=== PATIENT | female | born 1950 | race Two or more races ===

== ENCOUNTER 2018-06-21 20:54 | Emergency (ER) | payer OTHER, MEDICARE ==
[2018-06-21] MEDS ORDERED: 0.9 % SODIUM CHLORIDE 1,000 ML BAG IV ONE (21:02)
--- NOTE | 2018-06-21 21:03 | Emergency Department Record ---
History of Present Illness - General Chief Complaint: Abdominal Pain Stated Complaint: ABDOMINAL PAIN Time Seen by Provider: 06/21/18 20:55 Source: Patient, Family Mode of Arrival: Ambulatory Limitations: No limitations - History of Present Illness Initial Comments: 68 yo female presents with right lower abdominal pain for 3 days starting on Tuesday. The pain started gradually. It does come and go a little but has been mostly presents. No nausea, vomiting, diarrhea, rash, dysuria, hematuria, blood in stools. She has had her appendix removed in the past, hysterectomy, exploratory in the past. Normal bowel movements. She has IBS. Dr Lara is her PCP. Her last endoscopy was about 2 years ago. She states no abnormalities at that time. She is on Fentanyl and [place] for pain. MD Complaint: Abdominal pain -: Days(s) (3) Location: RLQ Radiation: RLQ Migration to: RLQ Quality: Aching Consistency: Constant Improves With: Nothing Worsens With: Movement Associated Symptoms: Denies other symptoms - Related Data Home Medications Medication Instructions Recorded Confirmed Last Taken Alprazolam 0.5 mg PO BID PRN 06/21/18 06/21/18 06/21/18 Aspirin [Adult Aspirin] 81 mg PO DAILY 06/21/18 06/21/18 06/21/18 Atorvastatin Calcium 20 mg PO DAILY 06/21/18 06/21/18 06/21/18 Bupropion HCl [Wellbutrin Xl] 300 mg PO QAM 06/21/18 06/21/18 06/21/18 Desvenlafaxine Succinate 50 mg PO DAILY 06/21/18 06/21/18 06/21/18 [Desvenlafaxine Succinate ER] Docusate Sodium [Colace] 100 mg PO DAILY 06/21/18 06/21/18 06/21/18 Fentanyl 50 mcg TD Q72H 06/21/18 06/21/18 06/21/18 Folic Acid 1 mg PO DAILY 06/21/18 06/21/18 06/21/18 Hydrocodone/APAP 5/325Mg [[place] 1 each PO Q6H PRN 06/21/18 06/21/18 06/21/18 5Mg/325Mg] Ondansetron [Zofran Odt] 4 mg SL ASDIR PRN 06/21/18 06/21/18 06/21/18 Pregabalin [Lyrica] 150 mg PO BID 06/21/18 06/21/18 06/21/18 Ranitidine HCl 150 mg PO ASDIR PRN 06/21/18 06/21/18 06/21/18 Zolpidem Tartrate 10 mg PO QHS 06/21/18 06/21/18 06/21/18 Allergies Allergy/AdvReac Type Severity Reaction Status Date / Time pentazocine [From [place]] Allergy RASH Verified 06/21/18 21:16 Sulfa (Sulfonamide Allergy RASH Verified 06/21/18 21:16 Antibiotics) Review of Systems Constitutional: Denies: Chills, Fever, Malaise, Weakness Eyes: Denies: Eye discharge ENT: Denies: Congestion, Throat pain Respiratory: Denies: Cough, Dyspnea Cardiovascular: Denies: Chest pain, Syncope Endocrine: Denies: Fatigue Gastrointestinal: Reports: Abdominal pain Musculoskeletal: Denies: Arthralgia, Joint swelling, Myalgia Skin: Denies: Bruising, Change in color, Rash Neurological: Denies: Headache Psychiatric: Denies: Anxiety Hematological/Lymphatic: Denies: Blood Clots, Easy bleeding, Easy bruising Physical Exam - General General Appearance: Alert, Oriented x3, Cooperative, No acute distress Limitations: No limitations - Head Head exam: Atraumatic, Normal inspection - Eye Eye exam: Normal appearance. negative: Conjunctival injection, Scleral icterus - ENT ENT exam: Normal exam, Mucous membranes moist Ear exam: Normal external inspection Nasal Exam: Normal inspection Mouth exam: Normal external inspection - Neck Neck exam: Normal inspection, Full ROM. negative: Tenderness - Respiratory Respiratory exam: Normal lung sounds bilaterally. negative: Respiratory distress - Cardiovascular Cardiovascular Exam: Regular rate, Normal rhythm, Normal heart sounds - GI/Abdominal GI/Abdominal exam: Normal bowel sounds, Tenderness, Other (Soft abdomen on the examination. Non tender except the RLQ otherwise very soft, benign examination. ). negative: Diminished bowel sounds, Distended, Guarding, Rebound, Rigid - Rectal Rectal exam: Deferred - exam: Deferred - Extremities Extremities exam: Normal inspection, Full ROM, Normal capillary refill. negative: Tenderness - Back Back exam: Reports: Full ROM. Denies: CVA tenderness (R), CVA tenderness (L) - Neurological Neurological exam: Alert, Oriented X3 - Psychiatric Psychiatric exam: Normal affect, Normal mood. negative: Agitated, Anxious - Skin Skin exam: Dry, Intact, Normal color, Warm Course Vital Signs 06/21/18 21:00 Temperature 98.2 F Pulse Rate [ 104 H Pulse Ox Probe] Respiratory 20 Rate Blood Pressure 154/91 [Left Arm] Pulse Ox 96 - Reevaluation(s) Reevaluation #1: 06/21/18 21:42 The labs were reviewed No acute changes on the CBC The UA is negative 06/21/18 21:50 No acute changes on the Lipase No acute changes on the LFT's The patient was updated on the results of the normal lab and UA. 06/21/18 23:[address] is pending. The patient was updated on the delays. No nausea or vomiting at this time. 06/22/18 00:[address] was reviewed. Moderate Colonic constipation. 9mm R upper renal pole not definitely a cyst. Recommend prior or follow up in 3-6 months. Medical Decision Making - Lab Data Result diagrams: 06/21/18 21:15 06/21/18 21:15 Disposition Disposition: Discharge Clinical Impression: Renal mass of unknown nature Abdominal pain Qualifiers: Abdominal location: unspecified location Qualified Code(s): R10.9 - Unspecified abdominal pain Disposition: Home, Self-Care Condition: (1) Good Instructions: Abdominal Pain (ED) Additional Instructions: Call your family doctor. Call to schedule the next available appointment for a recheck. Return to ED if your symptoms worsen or if you have any new concerns. Review the final Emergency Record and test results with your doctor on follow up You will need to follow up the 9mm right renal area with a prior CT scan for follow up with a your doctor for a CT or MRI in the next 3-6 months to ensure the area is not enlarging. Forms: Patient Portal Access Time of Disposition: 00:22 Quality - Quality Measures Quality Measures: N/A - Blood Pressure Screening Does Patient Have Any of the Following: No Blood Pressure Classification: Hypertensive Reading Systolic Measurement: 152 Diastolic Measurement: 98 Screening for High Blood Pressure: < Pre-Hypertensive BP, F/U Documented > [ [id number]] Pre-Hypertensive Follow-up Interventions: Referral to alternative/primary care provider.
[2018-06-21] MEDS ORDERED: ACETAMINOPHEN 1,000 MG/100 ML BTL IVPB ONE (21:19)
[2018-06-21] MEDS ORDERED: ONDANSETRON HCL IV 4 MG/2 ML VIAL IVP ONE (21:19)
[2018-06-21 21:22] LABS: URINE APPEARANCE CLEAR; URINE BILIRUBIN NEGATIVE (NEGATIVE); URINE BLOOD TRACE-I (NEGATIVE); URINE COLOR YELLOW; URINE GLUCOSE (UA) NEGATIVE (NEGATIVE); URINE KETONE NEGATIVE (NEGATIVE); URINE LEUKOCYTE ESTERASE TRACE (NEGATIVE); URINE NITRITE NEGATIVE (NEGATIVE); URINE PROTEIN NEGATIVE (NEGATIVE); URINE UROBILINOGEN 0.2 E.U./dL (0.20 - 1.00)
[2018-06-21 21:25] LABS: EOS % 7.1 % (0-6); GRAN % 45.4 % (47-80); HEMATOCRIT 37.8 % (35.0-47.0); HEMOGLOBIN 12.3 gm/dl (11.6-16.0); LYMPH % 38.2 % (16-45); MEAN CELL VOLUME 97.4 fl (81-97); MEAN CORPUSCULAR HEMOGLOBIN 31.7 pg (27-33); MEAN CORPUSCULAR HGB CONC 32.5 g/dl (32-36); MEAN PLATELET VOLUME 9.6 fl (7.4-10.4); MONO % 8.3 % (0-9); PLATELET COUNT 201 K/uL (130-400); RED BLOOD COUNT 3.88 M/uL (3.80-5.40); RED CELL DISTRIBUTION WIDTH 12.9 % (11.5-14.5); WHITE BLOOD COUNT W/O DIFF 5.8 K/uL (4.2-12.2)
[2018-06-21 21:30] LABS: URINE EPITHELIAL CELLS 0 - 2 (FEW); URINE RBC 0 - 2 (NONE SEEN); URINE WBC 0 - 2 (0-2/hpf)
[2018-06-21 21:38] LABS: BLOOD UREA NITROGEN 12 mg/dL (8-23); CREATININE 0.8 mg/dL (0.5-0.9); EST GLOMERULAR FILTRATION RATE > 60 mL/min
[2018-06-21 21:39] LABS: TOTAL PROTEIN 7.5 g/dL (6.6-8.7)
[2018-06-21 21:41] LABS: GLUCOSE,RANDOM 95 mg/dL (74-109)
[2018-06-21 21:43] LABS: ALT/SGPT 24 U/L (<33); AST/SGOT 29 U/L (10.0-35.0)
[2018-06-21 21:44] LABS: ALKALINE PHOSPHATASE 48 U/L (35-104); LIPASE 26 U/L (13-60)
== END 2018-06-22 00:32 | disposition home or self-care (01) ==
LOC: ER 20:54
DX: R10.31 Right lower quadrant pain (principal); N28.89 Other specified disorders of kidney and ureter
CPT/HCPCS: 74177; 80053; 81001; 83690; 85025; 96365; 96375; 99284; J2405; J7030